=== PATIENT | female | born 1985 | race Caucasian/White ===

== ENCOUNTER 2018-12-21 16:51 | Emergency (ER) | payer MEDICAID ==
[~2018-12-21] VITALS: Ht 170.2 cm; Wt 63.6 kg
--- NOTE | 2018-12-21 17:15 | NUR ---
SPOKE TO EDMD REGARDING PT SYMPTOMS; SHE DOES NOT FEEL ANYTHING NEEDS TO BE ORDERED PER PROTOCOL AT THIS TIME.
[2018-12-21 18:01] VITALS: BP 126/77
--- NOTE | 2018-12-21 18:42 | NUR ---
pt is resting quietly on gurney, waiting to be evaluated by provider,
[2018-12-21] MEDS ORDERED: ibuprofen tablet 400 MG TABLET PO ONE (19:30)
[2018-12-21 19:48] LABS: BASOPHILS # (AUTO) 0.2 X10'3 (0-0.2); BASOPHILS % (AUTO) 1.7 % (0-1); EOSINOPHILS # (AUTO) 0.4 X10'3 (0-0.9); EOSINOPHILS % (AUTO) 3.7 % (0-6); HEMATOCRIT 37.2 % (35.0-45.0); LYMPHOCYTES # (AUTO) 1.9 X10'3 (1.1-4.8); LYMPHOCYTES % (AUTO) 19.6 % (21-51); MEAN CORPUSCULAR HEMOGLOBIN 27.1 PG (27.0-31.0); MEAN CORPUSCULAR HGB CONC 32.2 g/dL (33.0-36.5); MEAN CORPUSCULAR VOLUME 84.1 FL (78-98); MONOCYTES # (AUTO) 0.9 X10'3 (0-0.9); MONOCYTES % (AUTO) 8.9 % (2-12); NEUTROPHILS # (AUTO) 6.4 X10'3 (1.8-7.7); NEUTROPHILS % (AUTO) 66.1 % (42-75); PLATELET COUNT 395 X10'3 (140-440); RED BLOOD COUNT 4.42 X10'6 (4.20-5.60); RED CELL DISTRIBUTION WIDTH 14.5 % (11.5-14.5); WHITE BLOOD COUNT 9.6 X10'3 (4.5-11.0)
== END 2018-12-21 20:07 | disposition home or self-care (01) ==
LOC: ER 16:52
DX: R60.0 Localized edema (principal); R22.1 Localized swelling, mass and lump, neck; G43.909 Migraine, unspecified, not intractable, without status migrainosus; Z98.890 Other specified postprocedural states; Z88.6 Allergy status to analgesic agent
CPT/HCPCS: 36415; 85025; 99283